=== PATIENT | female | born 1975 | race Caucasian/White ===

== ENCOUNTER 2017-09-06 08:52 | Inpatient (IN) | payer OTHER ==
[2017-09-06] VITALS (7 sets, daily range): BP systolic 110–126; BP diastolic 78–91
[~2017-09-06] VITALS: Ht 157.5 cm; Wt 85.3 kg
--- NOTE | ~2017-09-06 | EKG ---
[address] [address] ELECTROCARDIOGRAM REPORT Name: ALONSO GALVEZ Room #: 447-P ADM IN M.R.#: [id number] Admission: 09/06/17 Attend Phys: Sebastian Hart MD Discharge: Date of : 77 Report #: [id number] THIS REPORT FOR: //name// [facility] ED Test Date: 2017-09-06 Test Time: 08:52:31 Pat Name: ALONSO GALVEZ Department: Room: [facility] Gender: F Put[employer] Mixer: RUFINA : 1975 Requested By: Leann Moreau Order Number: [id number] MD: Thomas Isaac Measurements Intervals [place] Rate: 108 P: 19 WA: 148 QRS: 4 QRSD: 91 T: 56 QT: 373 QTc: 500 Interpretive Statements Sinus tachycardia Borderline ST depression, lateral leads No previous ECG available for comparison Electronically Signed On 09-06-2017 22:27:43 [employer] PROFESS[employer] by Thomas Isaac [email or web address] <ELECTRONICALLY SIGNED> By: Thomas Isaac MD 09/06/17 [id number] Thomas Isaac MD /ANTHONY
--- NOTE | ~2017-09-06 | 2DMMODE ---
[facility] [address] [place] [address] 2 D/M-MODE ECHOCARDIOGRAM Name: ALONSO GALVEZ Room #: 447-P ADM IN M.R.#: [id number] Admission: 09/06/17 Attend Phys: Sebastian Hart MD Discharge: Date of : 77 Date of Service: 09/07/17 1615 Report #: [id number] THIS REPORT FOR: //name// APPROVED REPORT Study performed: 09/07/2017 16:01:58 EXAM: Comprehensive 2D, Doppler, and color-flow Echocardiogram Patient Location: Echo lab Room #: [facility] Status: routine BSA: 1.86 HR: 71 bpm BP: 104/65 mmHg Rhythm: NSR Other Information Study Quality: Good Indications Chest pain. Hx: NE and cardiomyopathy in 06/17. 2D Dimensions RVDd: 36.46 mm LVEF(%): 57.66 (>50%) IVSd: 10.85 (7-11mm) LVOT Diam: 20.07 (18-24mm) LVDd: 43.13 mm PWd: 9.78 (7-11mm) Ascending Ao: 35.59 (22-36mm) LVDs: 30.14 (25-40mm) Aortic Root: 30.57 mm Farmer's LVEF: 57.66 % Volumes Left Atrial Volume (Systole) Single Plane 4CH: 76.92 mL Single Plane 2CH: 79.78 mL LA ESV Index: 45.00 mL/m2 Aortic Valve AoV Peak Braden.: 1.67 m/s AO Peak Gr.: 11.09 mmHg LVOT Max P.83 mmHg LVOT Max V: 1.10 m/s NATALIIA Vmax: 2.09 cm2 Mitral Valve E/A Ratio: 1.5 MV Decel. Time: 235.49 ms [facility] [place] [address] 2 D/M-MODE ECHOCARDIOGRAM Name: MIGUELSUKHJENNYFERALONSO M Room #: 447-P [facility] IN .R.#: [id number] Admission: 09/06/17 Attend Phys: Sebastian Hart MD Discharge: Date of : 77 Date of Service: 09/07/17 1615 Report #: [id number] MV E Max Braden.: 1.20 m/s MV A Braden.: 0.79 m/s MV PHT: 68.29 ms IVRT: 55.36 ms Pulmonary Valve PV Peak Braden.: 1.26 m/s PV Peak Gr.: 6.32 mmHg Pulmonary Vein P Vein S: 0.56 m/s P Vein A: 0.33 m/s P Vein D: 0.78 m/s P Vein A Dur.: 103.8 msec P Vein S/D Ratio: 0.72 Tricuspid Valve TR Peak Braden.: 2.23 m/s RAP Estimate: 5.00 mmHg TR Peak Gr.: 19.88 mmHg PA Pressure: 25.00 mmHg Left Ventricle The left ventricle is normal size. There is normal LV segmental wall motion. There is normal left ventricular wall thickness. Left ventricular systolic function is normal. LVEF is 60%. The left ventricular diastolic function is normal. Right Ventricle The right ventricle is normal size. The right ventricular systolic function is normal. Atria The left atrium size is normal. The right atrium size is normal. Aortic Valve The aortic valve is normal in structure. Trace aortic regurgitation. There is no aortic valvular stenosis. Mitral Valve The mitral valve is normal in structure. Trace mitral regurgitation. Tricuspid Valve The tricuspid valve is normal in structure. Trace tricuspid regurgitation. Estimate Pulmonic Valve The pulmonary valve is normal in structure. Trace pulmonic [facility] [address] [place] [address] 2 D/M-MODE ECHOCARDIOGRAM Name: ALONSO GALVEZ Room #: 447-P [facility] IN ..#: [id number] Admission: 09/06/17 Attend Phys: Sebastian Hart MD Discharge: Date of : 77 Date of Service: 09/07/17 1615 Report #: [id number] regurgitation. Estimated PAP is 25mmHg. Great Vessels The aortic root is normal in size. The ascending aorta is normal in size. IVC is normal in size and collapses >50% with inspiration. Pericardium There is no pericardial effusion. <Conclusion> The left ventricle is normal size. LVEF is 60%. The aortic valve is normal in structure. Trace aortic regurgitation. The mitral valve is normal in structure. Trace mitral regurgitation. The tricuspid valve is normal in structure. Trace tricuspid regurgitation. Estimate The pulmonary valve is normal in structure. Trace pulmonic regurgitation. Estimated PAP is 25mmHg. There is no pericardial effusion. <ELECTRONICALLY SIGNED> By: Rome Uribe MD 09/07/17 1615 1615 161 Rome Uribe MD /INF
[~2017-09-06 08:52] MED LIST: ALIGN4 MG PO; AUGMENTIN 875875 MG PO; AVELOX 400 MG400 M1 PO; CARAFATE 1 GM TA1 G1 PO; CARAFATE 11 GM/10 M1 PO; CENTRUM SILVER1 EAC4 PO; CHANTIX1 MG; CIPRO500 M1 PO; CIPROFLOXACIN500 M1 PO; FLAGYL500 MG PO; HYDROCODONE-AP1 EAC6 PO; LOMOTIL TABLET1 EACH PO; MULTIVITAMINS; NORCO 5-325 TA1 EAC1 PO; NORCO 5-325 TA1 EACH PO; ONDANSETRON HCL4 M2 PO; PERCOCET 5-3251 EACH PO; PERCOCET PO; PROMETHAZINE-C120 ML PO; PROTONIX40 M1 PO; VANCOCIN 250 M250 M1 PO; XANAX1 MG PO; ZOFRAN ODT4 MG PO; ZOFRAN4 MG PO
[2017-09-06] MEDS ORDERED: ALDACTONE25 MG PO (09:18)
[2017-09-06] MEDS ORDERED: POTASSIUM20 PO (09:18)
[2017-09-06] MEDS ORDERED: CARVEDILOL6.25 MG (09:18)
[2017-09-06 09:25] LABS: HEMATOCRIT 41.3 % (37.0-47.0); HEMOGLOBIN 13.6 gm/dL (12.0-15.0); MANUAL DIFF YES; MCHC 32.9 g/dL (28.0-37.0); MCV 97.4 fL (80.0-100.0); PLATELET COUNT 191 thou/uL (150-400); RBC 4.24 mil/uL (4.20-5.00); RDW 21.2 % (10.5-14.5)
[2017-09-06 09:27] LABS: ANION GAP 14 mmol/L (7-16); BUN 2 mg/dL (7-18); CALCIUM 9.2 mg/dL (8.5-10.1); CHLORIDE 102 mmol/L (98-107); CO2 27 mmol/L (21-32); CREATININE 0.5 mg/dL (0.6-1.0); GLUCOSE 87 mg/dL (74-106); POTASSIUM 3.5 mmol/L (3.5-5.1); SODIUM 143 mmol/L (136-145)
[2017-09-06 09:36] LABS: TROPONIN-I < 0.04 ng/mL (<0.06)
[2017-09-06 09:49] LABS: ABSOLUTE NEUTROPHILS 6.1 thou/uL (1.4-8.2); ATYPICAL LYMPHS 6 %; TOTAL CELL COUNT 100
[2017-09-06 09:50] LABS: ANISOCYTOSIS 1+; PLATELET ESTIMATE NORMAL
[2017-09-06] MEDS ORDERED: XANAX1 MG PO (11:54)
[2017-09-07 04:19] VITALS: BP 98/67
[2017-09-07 05:47] LABS: ABSOLUTE NEUTROPHILS 3.1 thou/uL (1.4-8.2); BASOPHILS 0.4 % (0.0-2.0); EOSINOPHILS 2.3 % (0.0-3.0); HEMATOCRIT 34.6 % (37.0-47.0); LYMPHOCYTES 33.1 % (24.0-44.0); MCH 32.2 pg (26.0-34.0); MCHC 33.2 g/dL (28.0-37.0); MCV 96.9 fL (80.0-100.0); MONOCYTES 10.9 % (1.0-8.0); PLATELET COUNT 138 thou/uL (150-400); POLYS 53.3 % (36.0-66.0); RBC 3.57 mil/uL (4.20-5.00); RDW 20.8 % (10.5-14.5); WBC 5.9 thou/uL (4.0-11.0)
[2017-09-07 05:51] LABS: HEMOGLOBIN 11.5 gm/dL (12.0-15.0); MANUAL DIFF NO
[2017-09-07 06:21] LABS: ANION GAP 9 mmol/L (7-16); BUN 6 mg/dL (7-18); CALCIUM 8.2 mg/dL (8.5-10.1); CHLORIDE 102 mmol/L (98-107); CHOLESTEROL 153 mg/dL (<200); CO2 29 mmol/L (21-32); CREATININE 0.6 mg/dL (0.6-1.0); GLUCOSE 81 mg/dL (74-106); HDL CHOLESTEROL 18 mg/dL (>40); LDL CHOLESTEROL 92 mg/dL (<100); MAGNESIUM 1.5 mg/dL (1.8-2.4); POTASSIUM 3.3 mmol/L (3.5-5.1); SODIUM 140 mmol/L (136-145); TC:HDL 8.5 Ratio (Not establshd); TRIGLYCERIDE 216 mg/dL (<150); VLDL 43 mg/dL (<40)
[2017-09-07 06:22] LABS: SERUM ASSESSMENT Clear
[2017-09-07 08:00] VITALS: BP 104/65
[2017-09-07] MEDS ORDERED: PROTONIX40 M1 PO (12:35)
== END 2017-09-07 16:19 | disposition home or self-care (01) | DRG 313 ==
LOC: ER 08:52 → EROBS 10:16 → 4S 11:06
PROVIDERS: Emergency Medicine; Nurse Practitioner
DX: R07.89 Other chest pain (principal); I42.9 Cardiomyopathy, unspecified; F10.129 Alcohol abuse with intoxication, unspecified; I25.10 Atherosclerotic heart disease of native coronary artery without angina pectoris; Y90.9 Presence of alcohol in blood, level not specified; F41.9 Anxiety disorder, unspecified; I50.9 Heart failure, unspecified; Z98.51 Tubal ligation status; Z82.49 Family history of ischemic heart disease and other diseases of the circulatory system; Z83.3 Family history of diabetes mellitus; Z88.8 Allergy status to other drugs, medicaments and biological substances; Z91.041 Radiographic dye allergy status; Z80.9 Family history of malignant neoplasm, unspecified; Z87.891 Personal history of nicotine dependence; Z79.899 Other long term (current) drug therapy; Z93.3 Colostomy status
CPT/HCPCS: 10100